=== PATIENT | female | born 1960 | race Two or more races ===

== ENCOUNTER 2025-01-12 14:46 | Inpatient (IN) | payer MEDICAID ==
[2025-01-12] VITALS (8 sets, daily range): BP systolic 79–102; BP diastolic 57–72; PULSE 110–123; RESP 16–30; TEMP 36.5848–36.6; O2SAT 97–99
[~2025-01-12] VITALS: Ht 157.5 cm; Wt 69.9 kg
[~2025-01-12 14:46] MED LIST: PROT40 MT; QUET50TA PO; SUCR1TAB PO; THIA50TA12 MT
[2025-01-12] MEDS: VANCOMYCIN 1G PREMIX 200 ML IV ONE (15:15)
[2025-01-12] MEDS: SODIUM CHLORIDE 0.9% (SEPSIS BOLUS) IV ONE (15:48)
[2025-01-12] MEDS: PIPERACILLIN/TAZO 3.375G/50ML 50 ML IV ONE (15:54)
[2025-01-12] MEDS: ONDANSETRON HCL 4MG/2ML INJ IV ONE ×2 (15:54→17:01)
[2025-01-12] MEDS: PANTOPRAZOLE SODIUM 40 MG/VIAL IV ONE (15:54)
[2025-01-12 16:09] LABS: BASOPHILS % 0.2 % (0.0-2.0); EOSINOPHILS % 0.0 % (0.0-5.0); HEMATOCRIT. 22.5 % (36.0-48.0); LYMPHOCYTES % 7.4 % (20.0-50.0); MEAN PLATELET VOLUME 10.3 fl (7.4-10.4); MONOCYTES % 3.2 % (2.0-8.0); NEUTROPHILS % 89.2 % (40.0-76.0); PLATELET 151 x1000/uL (130-400); RED BLOOD CELL COUNT 2.01 mill/uL (4.2-5.4); RED CELL DISTRIBUTION WIDTH 18.5 % (11.6-14.6)
[2025-01-12 16:19] LABS: BG BASE EXCESS -1.3 mmol/L (-2.0-3.0); BG CARBOXYHEMOGLOBIN 0.7 % (0.5-1.5); BG DEOXYHEMOGLOBIN 2.1 % (0.0-5.0); BG FRACTION INSPIRED OXYGEN 21; BG HCO3 ACT 19.8 mmol/L (21.0-28.0); BG METHEMOGLOBIN 0.3 % (0.5-1.5); BG OXYGEN SATURATION 97.9 % (94.0-98.0); BG OXYHEMOGLOBIN 96.9 % (94.0-98.0); BG PCO2 20.5 mmHg (32.0-45.0); BG PH 7.603 (7.350-7.450); BG PO2 99.4 mmHg (83.0-108.0); BG SAMPLE SITE LEFT BRACHIAL; BG TOTAL HEMOGLOBIN 7.0 g/dL (12.0-16.0); BG VENT MODE ROOM AIR
[2025-01-12 16:20] LABS: HEMOGLOBIN. 6.7 g/dL (12.0-16.0)
[2025-01-12 16:21] LABS: ADD RBC MORPHOLOGY YES
[2025-01-12 16:38] LABS: UREA NITROGEN BLOOD 26 mg/dL (9-23)
[2025-01-12 16:39] LABS: ETHANOL BLOOD < 10 mg/dL (<10); INR > 10.0
[2025-01-12 16:40] LABS: ASPARTATE AMINOTRANSFERASE > 1000 IU/L (<34); BILIRUBIN DIRECT 1.7 mg/dL (<=3.0); BILIRUBIN TOTAL 2.1 mg/dL (0.1-1.0)
[2025-01-12 16:41] LABS: PROTEIN TOTAL 4.3 g/dL (6.0-8.3)
[2025-01-12 16:47] LABS: CREATININE 1.7 mg/dL (0.6-1.0)
[2025-01-12 16:49] LABS: TROPONIN I HIGH SENSITIVITY 74 ng/L (3.0-34)
[2025-01-12] MEDS: DEXTROSE 50% WATER 50ML SYRINGE IV ONE (16:52)
[2025-01-12] MEDS: MAGNESIUM 2 G PREMIX 50 ML IV ONE (17:03)
[2025-01-12 17:28] LABS: PLATELET ESTIMATE NORMAL
[2025-01-12] MEDS: KCL 20MEQ/100ML PREMIX 100 ML IV SCH (17:42)
[2025-01-12] MEDS: PHYTONADIONE 10 MG in DEXTROSE 5% WATER 50 ML IV ONE (17:43)
[2025-01-12] MEDS: PANTOPRAZOLE 80 MG in SODIUM CHLORIDE 0.9% 100 ML IV SCH (17:53)
[2025-01-12] MEDS: NOREPINEPHRINE 8MG/250ML PMX 250 ML IV ONE (17:53)
[2025-01-12 18:13] LABS: INR 9.6
[2025-01-12] MEDS: HUMAN-LANS PROTHROMBIN CPLX (PCC) 1000 UNITS VIAL IV ONE (19:01)
[2025-01-12] MEDS ORDERED: ONDANSETRON HCL 4MG/2ML INJ IV PRN (19:15)
[2025-01-12] MEDS ORDERED: GUAIFENESIN 200MG/10ML SUGAR FREE UDC PO PRN (19:15)
[2025-01-12] MEDS ORDERED: PHENYLEPHRINE 50MG/250ML PMX 250 ML IV PRN (19:15)
[2025-01-12] MEDS ORDERED: NOREPINEPHRINE 8 MG in DEXT 5% WATER 242 ML IV PRN (19:30)
[2025-01-12 20:10] LABS: CREATININE 1.5 mg/dL (0.6-1.0)
[2025-01-12 20:11] LABS: UREA NITROGEN BLOOD 22 mg/dL (9-23)
[2025-01-12 20:12] LABS: ASPARTATE AMINOTRANSFERASE > 1000 IU/L (<34)
[2025-01-12 20:13] LABS: BILIRUBIN TOTAL 3.6 mg/dL (0.1-1.0); PROTEIN TOTAL 4.6 g/dL (6.0-8.3)
[2025-01-12 20:23] LABS: HEPATITIS A AB IGM NEGATIVE (Negative)
[2025-01-12 20:24] LABS: HEPATITIS B CORE AB IGM NEGATIVE (Negative); HEPATITIS C AB NON REACTIVE (Neg) (Negative)
[2025-01-12] MEDS: BLOOD SUGAR DIAGNOSTIC STRIP TEST SCH (21:36)
[2025-01-12] MEDS: ALBUMIN HUMAN 25GM/100ML (25%) IV SCH (21:48)
[2025-01-12] MEDS: OCTREOTIDE 1,000 MCG in SODIUM CHLORIDE 0.9% 98 ML IV ONE (21:49)
[2025-01-12] MEDS: FOLIC ACID 1 MG, THIAMINE HCL 100 MG, MVI, ADULT NO.1 10 ML in DEXT 5%/0.9% NACL 1,000 ML IV ONE (21:49)
[2025-01-12] MEDS: NOREPINEPHRINE 8MG/250ML PMX 250 ML IV PRN (22:57)
[2025-01-12 23:37] LABS: BASOPHILS % 0.2 % (0.0-2.0); EOSINOPHILS % 0.0 % (0.0-5.0); HEMATOCRIT. 42.8 % (36.0-48.0); HEMOGLOBIN. 13.9 g/dL (12.0-16.0); LYMPHOCYTES % 10.4 % (20.0-50.0); MEAN PLATELET VOLUME 9.7 fl (7.4-10.4); MONOCYTES % 3.6 % (2.0-8.0); NEUTROPHILS % 85.8 % (40.0-76.0); PLATELET 128 x1000/uL (130-400); RED BLOOD CELL COUNT 4.54 mill/uL (4.2-5.4); RED CELL DISTRIBUTION WIDTH 18.4 % (11.6-14.6)
[2025-01-12 23:51] LABS: CREATININE 1.7 mg/dL (0.6-1.0)
[2025-01-12 23:52] LABS: UREA NITROGEN BLOOD 24 mg/dL (9-23)
[2025-01-12 23:54] LABS: PHOSPHORUS 4.5 mg/dL (2.5-4.9)
[2025-01-12] MEDS: PHYTONADIONE 10MG/ML INJ SUBCUT NR (23:56)
[2025-01-12] MEDS: PIPERACILLIN/TAZO 3.375G/50ML 50 ML IV SCH (23:58)
[2025-01-13] VITALS (113 sets, daily range): BP systolic 45–170; BP diastolic 17–154; PULSE 93–133; RESP 15–37; TEMP 36.6–36.7; O2SAT 89–99
[2025-01-13 01:11] LABS: INR 4.6
[2025-01-13] MEDS: MAGNESIUM 1 G PREMIX 100 ML IV SCH (03:53)
[2025-01-13] MEDS: KCL 20MEQ/100ML PREMIX 100 ML IV SCH (03:53)
[2025-01-13] MEDS: PANTOPRAZOLE SODIUM 40 MG/VIAL IV SCH ×2 (04:07→21:26)
[2025-01-13] MEDS: PHYTONADIONE 10MG/ML INJ SUBCUT SCH (05:25)
[2025-01-13 07:02] LABS: CREATININE 1.8 mg/dL (0.6-1.0); INR 2.6; UREA NITROGEN BLOOD 23 mg/dL (9-23)
[2025-01-13 07:04] LABS: BILIRUBIN DIRECT 3.8 mg/dL (<=3.0); BILIRUBIN TOTAL 5.9 mg/dL (0.1-1.0); PROTEIN TOTAL 4.7 g/dL (6.0-8.3)
[2025-01-13 07:16] LABS: ASPARTATE AMINOTRANSFERASE 1187 IU/L (<34)
[2025-01-13 08:04] LABS: TROPONIN I HIGH SENSITIVITY 198 ng/L (3.0-34)
[2025-01-13] MEDS: VASOPRESSIN 20 UNIT in SODIUM CHLORIDE 0.9% 99 ML IV PRN (08:37)
[2025-01-13] MEDS: SODIUM CHLORIDE 0.9% 1,000 ML IV SCH (08:38)
[2025-01-13] MEDS: SODIUM CHLORIDE 0.9% (SEPSIS BOLUS) IV NR (08:40)
[2025-01-13] MEDS ORDERED: PANTOPRAZOLE SODIUM 40 MG/VIAL IV SCH (09:00)
[2025-01-13] MEDS ORDERED: PANTOPRAZOLE 80 MG in SODIUM CHLORIDE 0.9% 100 ML IV SCH (10:00)
[2025-01-13 10:15] LABS: BASOPHILS % 0.7 % (0.0-2.0); EOSINOPHILS % 0.1 % (0.0-5.0); HEMATOCRIT. 35.6 % (36.0-48.0); HEMOGLOBIN. 12.2 g/dL (12.0-16.0); LYMPHOCYTES % 15.0 % (20.0-50.0); MEAN PLATELET VOLUME 9.3 fl (7.4-10.4); MONOCYTES % 5.4 % (2.0-8.0); NEUTROPHILS % 78.8 % (40.0-76.0); PLATELET 117 x1000/uL (130-400); RED BLOOD CELL COUNT 3.93 mill/uL (4.2-5.4); RED CELL DISTRIBUTION WIDTH 18.1 % (11.6-14.6)
[2025-01-13] MEDS: VANCOMYCIN 750MG PREMIX 150 ML IV SCH (11:40)
[2025-01-13 11:49] LABS: CLARITY URINE CLEAR (CLEAR); COLOR URINE DARK YELLOW (YELLOW); GLUCOSE URINE NEGATIVE (NEGATIVE); KETONES URINE TRACE (NEGATIVE); LEUKOCYTE ESTERASE URINE TRACE (NEGATIVE); NITRITE URINE NEGATIVE (NEGATIVE); OCCULT BLOOD URINE NEGATIVE (NEGATIVE); PH URINE 6.0 (4.5-8.0); PROTEIN URINE 1+ (NEGATIVE); SPECIFIC GRAVITY URINE 1.020 (1.005-1.030); UROBILINOGEN URINE 1.0 E.U./dL (0.2-1.0)
[2025-01-13 12:00] LABS: SQUAMOUS EPITHELIAL CELL URINE RARE /lpf (RARE/1+)
[2025-01-13] MEDS ORDERED: VANCOMYCIN 750MG PREMIX 150 ML IV SCH (12:00)
[2025-01-13 12:02] LABS: BACTERIA URINE TRACE
[2025-01-13 12:04] LABS: WBC URINE 0-2 /hpf (0-2)
[2025-01-13 12:05] LABS: *AMPHETAMINES SCREEN URINE NEGATIVE (NEGATIVE); *BARBITURATES SCREEN URINE NEGATIVE (NEGATIVE); *BENZODIAZEPINES SCREEN URINE NEGATIVE (NEGATIVE); *COCAINE SCREEN URINE NEGATIVE (NEGATIVE); CANNABINOID URINE SCREEN NEGATIVE (NEGATIVE); ECSTASY MDMA SCREEN URINE NEGATIVE (NEGATIVE); METHADONE URINE SCREEN NEGATIVE (NEGATIVE); OPIATES URINE SCREEN NEGATIVE (NEGATIVE); PHENCYCLIDINE URINE SCREEN NEGATIVE (NEGATIVE); RBC URINE NONE SEEN /hpf (0-2)
[2025-01-13] MEDS: MAGNESIUM 2 G PREMIX 50 ML IV NR (12:16)
[2025-01-13] MEDS: PHYTONADIONE 10 MG in DEXTROSE 5% WATER 49 ML IV SCH (12:40)
[2025-01-13] MEDS: LIDOCAINE HCL 1% 10 MG/ML 10ML VIAL ONE (12:43)
[2025-01-13 19:51] LABS: PLATELET 104 x1000/uL (130-400); RED BLOOD CELL COUNT 4.06 mill/uL (4.2-5.4); RED CELL DISTRIBUTION WIDTH 18.3 % (11.6-14.6)
[2025-01-13 20:01] LABS: CREATININE 1.6 mg/dL (0.6-1.0); UREA NITROGEN BLOOD 25.0 mg/dL (9-23)
[2025-01-13] MEDS: RIFAXIMIN 550 MG TABLET PO SCH (21:26)
[2025-01-14] VITALS (92 sets, daily range): BP systolic 91–141; BP diastolic 48–107; PULSE 78–117; RESP 12–38; TEMP 36.6–37.33632; O2SAT 97–100
[2025-01-14 06:42] LABS: BASOPHILS % 0.3 % (0.0-2.0); EOSINOPHILS % 0.2 % (0.0-5.0); HEMATOCRIT. 34.4 % (36.0-48.0); HEMOGLOBIN. 11.7 g/dL (12.0-16.0); LYMPHOCYTES % 19.4 % (20.0-50.0); MEAN PLATELET VOLUME 9.3 fl (7.4-10.4); MONOCYTES % 8.8 % (2.0-8.0); NEUTROPHILS % 71.3 % (40.0-76.0); PLATELET 77 x1000/uL (130-400); RED BLOOD CELL COUNT 3.75 mill/uL (4.2-5.4); RED CELL DISTRIBUTION WIDTH 18.1 % (11.6-14.6)
[2025-01-14 06:48] LABS: INR 1.7
[2025-01-14 07:18] LABS: CREATININE 1.4 mg/dL (0.6-1.0); UREA NITROGEN BLOOD 31.0 mg/dL (9-23)
[2025-01-14 07:21] LABS: BILIRUBIN TOTAL 6.4 mg/dL (0.1-1.0)
[2025-01-14] MEDS: DEXT 5%/0.45% NACL 1000ML 1,000 ML IV SCH (08:09)
[2025-01-14] MEDS: SODIUM BICARBONATE 4.2% 2.5MEQ/5ML VIAL IV ONE (14:11)
[2025-01-14] MEDS: LIDOCAINE HCL 1% 10 MG/ML 10ML VIAL ONE (14:11)
[2025-01-14] MEDS: LACTULOSE 20G/30ML UDC PO SCH (15:15)
[2025-01-14] MEDS ORDERED: HYDROCODONE/ACETAMINOPHEN 5/325MG TABLET PO SCH (18:45)
[2025-01-14] MEDS: TRAZODONE HCL 50MG TABLET PO SCH (20:18)
[2025-01-14] MEDS: CEFTRIAXONE 1GM/50ML 50 ML IV SCH (20:18)
[2025-01-14] MEDS: DOXYCYCLINE 100MG/100ML 100 ML IV SCH (20:19)
[2025-01-14 22:26] LABS: BODY FLUID WBC 82 /cu mm (0-200)
[2025-01-14 22:27] LABS: BODY FLUID MONOCYTES 12 %; BODY FLUID RBC 10 /cu mm (0-2000)
[2025-01-14] MEDS: IOHEXOL-350 100 ML BOTTLE ONE (23:21)
[2025-01-14 23:55] LABS: BG BASE EXCESS 8.4 mmol/L (-2.0-3.0); BG CARBOXYHEMOGLOBIN 0.6 % (0.5-1.5); BG DEOXYHEMOGLOBIN 1.3 % (0.0-5.0); BG FLOW(L/min) 4.00 L/min; BG FRACTION INSPIRED OXYGEN 36; BG HCO3 ACT 31.9 mmol/L (21.0-28.0); BG METHEMOGLOBIN 0.0 % (0.5-1.5); BG OXYGEN SATURATION 98.7 % (94.0-98.0); BG OXYHEMOGLOBIN 98.1 % (94.0-98.0); BG PCO2 39.9 mmHg (32.0-45.0); BG PH 7.521 (7.350-7.450); BG PO2 126.3 mmHg (83.0-108.0); BG TOTAL HEMOGLOBIN 11.0 g/dL (12.0-16.0); BG VENT MODE NASAL CANNULA
[2025-01-15] VITALS (124 sets, daily range): BP systolic 37–179; BP diastolic 16–128; PULSE 66–148; RESP 12–30; TEMP 36.6–37; O2SAT 93–100
[2025-01-15] MEDS ORDERED: PHENYLEPHRINE 50MG/250ML PMX 250 ML IV PRN (07:00)
[2025-01-15 07:29] LABS: CREATININE 1.0 mg/dL (0.6-1.0); UREA NITROGEN BLOOD 34.0 mg/dL (9-23)
[2025-01-15] MEDS: PHENYLEPHRINE 50MG/250ML PMX 250 ML IV PRN (07:34)
[2025-01-15 08:10] LABS: PLATELET 53 x1000/uL (130-400); RED BLOOD CELL COUNT 3.35 mill/uL (4.2-5.4); RED CELL DISTRIBUTION WIDTH 18.2 % (11.6-14.6)
[2025-01-15] MEDS: KCL 20MEQ/100ML PREMIX 100 ML IV SCH (08:37)
[2025-01-15 10:49] LABS: LACTATE DEHYDROGENASE 322 IU/L (120-246)
[2025-01-15 10:50] LABS: ASPARTATE AMINOTRANSFERASE 133 IU/L (<34); BILIRUBIN DIRECT 5.3 mg/dL (<=3.0); BILIRUBIN TOTAL 8.0 mg/dL (0.1-1.0); PROTEIN TOTAL 4.6 g/dL (6.0-8.3)
[2025-01-15] MEDS ORDERED: DEXMEDETOMIDINE 100 ML IV PRN (13:00)
[2025-01-15] MEDS: ALBUMIN HUMAN 25GM/100ML (25%) IV SCH (13:52)
[2025-01-15] MEDS: MIDODRINE HCL 5MG TABLET PO SCH (13:52)
[2025-01-15] MEDS: IPRATROPIUM/ALBUTEROL 0.5-3(2.5)MG/3ML NEB HHN PRN (15:23)
[2025-01-15 15:24] LABS: BG BASE EXCESS 3.0 mmol/L (-2.0-3.0); BG CARBOXYHEMOGLOBIN 0.7 % (0.5-1.5); BG DEOXYHEMOGLOBIN 0.1 % (0.0-5.0); BG FRACTION INSPIRED OXYGEN 80; BG HCO3 ACT 24.6 mmol/L (21.0-28.0); BG METHEMOGLOBIN 0.1 % (0.5-1.5); BG OXYGEN SATURATION 99.9 % (94.0-98.0); BG OXYHEMOGLOBIN 99.1 % (94.0-98.0); BG PCO2 28.1 mmHg (32.0-45.0); BG PEEP (cmH2O) 5.0 cmH2O; BG PH 7.560 (7.350-7.450); BG PO2 254.9 mmHg (83.0-108.0); BG SAMPLE SITE RIGHT FEMORAL; BG TIDAL VOLUME(mL) 450.0 mL; BG TOTAL HEMOGLOBIN 11.2 g/dL (12.0-16.0); BG VENT MODE VENT - AC; BG VENT RATE 16.0 set
[2025-01-15] MEDS: ACETYLCYSTEINE 200MG/ML 20% VIAL 4ML INH SCH (15:24)
[2025-01-15 17:21] LABS: BASOPHILS % 0.1 % (0.0-2.0); EOSINOPHILS % 0.1 % (0.0-5.0); HEMATOCRIT. 26.7 % (36.0-48.0); HEMOGLOBIN. 9.2 g/dL (12.0-16.0); LYMPHOCYTES % 15.8 % (20.0-50.0); MEAN PLATELET VOLUME 9.6 fl (7.4-10.4); MONOCYTES % 10.9 % (2.0-8.0); NEUTROPHILS % 73.1 % (40.0-76.0); RED BLOOD CELL COUNT 2.84 mill/uL (4.2-5.4); RED CELL DISTRIBUTION WIDTH 17.9 % (11.6-14.6)
[2025-01-15 17:36] LABS: INR 1.6
[2025-01-15] MEDS ORDERED: PROPOFOL 10MG/ML 100ML 100 ML IV PRN ×2 (21:00→21:08)
[2025-01-15] MEDS: DEXMEDETOMIDINE 100 ML IV PRN (22:26)
[2025-01-16] VITALS (109 sets, daily range): BP systolic 72–156; BP diastolic 26–103; PULSE 78–109; RESP 12–20; TEMP 36.4–36.7; O2SAT 97–100
[2025-01-16] MEDS: NOREPINEPHRINE 32 MG in DEXT 5% WATER 218 ML IV PRN (00:55)
[2025-01-16 06:40] LABS: PLATELET 58 x1000/uL (130-400); RED BLOOD CELL COUNT 3.07 mill/uL (4.2-5.4); RED CELL DISTRIBUTION WIDTH 18.4 % (11.6-14.6)
[2025-01-16 07:00] LABS: UREA NITROGEN BLOOD 36 mg/dL (9-23)
[2025-01-16 07:01] LABS: CREATININE 0.8 mg/dL (0.6-1.0)
[2025-01-16 07:02] LABS: TRIGLYCERIDE 126 mg/dL (0-150)
[2025-01-16 07:03] LABS: ASPARTATE AMINOTRANSFERASE 104 IU/L (<34); BILIRUBIN DIRECT 8.7 mg/dL (<=3.0)
[2025-01-16 07:04] LABS: BILIRUBIN TOTAL 11.9 mg/dL (0.1-1.0); PROTEIN TOTAL 4.8 g/dL (6.0-8.3)
[2025-01-16] MEDS ORDERED: LACTULOSE 20G/30ML UDC PO NR (10:30)
[2025-01-16 10:31] LABS: PLATELET 45 x1000/uL (130-400)
[2025-01-16] MEDS: LACTULOSE ENEMA 1,000ML BOTTLE PR NR (11:49)
[2025-01-16 14:04] LABS: BG BASE EXCESS 3.8 mmol/L (-2.0-3.0); BG CARBOXYHEMOGLOBIN 0.4 % (0.5-1.5); BG DEOXYHEMOGLOBIN 2.1 % (0.0-5.0); BG FRACTION INSPIRED OXYGEN 40; BG HCO3 ACT 26.1 mmol/L (21.0-28.0); BG METHEMOGLOBIN 0.3 % (0.5-1.5); BG OXYGEN SATURATION 97.9 % (94.0-98.0); BG OXYHEMOGLOBIN 97.2 % (94.0-98.0); BG PCO2 31.1 mmHg (32.0-45.0); BG PEEP (cmH2O) 5.0 cmH2O; BG PH 7.542 (7.350-7.450); BG PO2 94.7 mmHg (83.0-108.0); BG SAMPLE SITE LEFT RADIAL; BG TIDAL VOLUME(mL) 450.0 mL; BG TOTAL HEMOGLOBIN 10.1 g/dL (12.0-16.0); BG VENT MODE VENT - AC; BG VENT RATE 14.0 set
[2025-01-16] MEDS: KCL 20MEQ/100ML PREMIX 100 ML IV ONE (14:57)
[2025-01-16] MEDS: MAGNESIUM 2 G PREMIX 50 ML IV ONE (14:57)
[2025-01-16] MEDS: LACTULOSE 20G/30ML UDC PO SCH (21:51)
[2025-01-16 23:45] LABS: T4 FREE 0.60 ng/dL (0.89-1.76)
[2025-01-17] VITALS (91 sets, daily range): BP systolic 77–137; BP diastolic 53–105; PULSE 89–107; RESP 14–22; TEMP 36.4–36.9; O2SAT 97–100
[2025-01-17 07:16] LABS: PLATELET 58 x1000/uL (130-400); RED BLOOD CELL COUNT 3.23 mill/uL (4.2-5.4); RED CELL DISTRIBUTION WIDTH 18.3 % (11.6-14.6)
[2025-01-17 07:23] LABS: CREATININE 0.7 mg/dL (0.6-1.0); UREA NITROGEN BLOOD 25 mg/dL (9-23)
[2025-01-17 07:25] LABS: ASPARTATE AMINOTRANSFERASE 101 IU/L (<34); BILIRUBIN DIRECT 10.6 mg/dL (<=3.0); PROTEIN TOTAL 4.9 g/dL (6.0-8.3)
[2025-01-17 07:28] LABS: BILIRUBIN TOTAL 14.2 mg/dL (0.1-1.0)
[2025-01-17] MEDS: OCTREOTIDE 1,000 MCG in SODIUM CHLORIDE 0.9% 98 ML IV SCH (08:12)
[2025-01-17] MEDS: KCL 20MEQ/100ML PREMIX 100 ML IV NR (14:21)
[2025-01-17] MEDS: MAGNESIUM 2 G PREMIX 50 ML IV NR (14:21)
[2025-01-17] MEDS: BISACODYL 10MG SUPP PR PRN (15:28)
[2025-01-17 23:04] LABS: CREATININE 0.8 mg/dL (0.6-1.0); UREA NITROGEN BLOOD 25 mg/dL (9-23)
[2025-01-18] VITALS (105 sets, daily range): BP systolic 76–170; BP diastolic 29–110; PULSE 80–118; RESP 13–22; TEMP 36.4–37.4; O2SAT 95–100
[2025-01-18 07:12] LABS: PLATELET 76 x1000/uL (130-400); RED BLOOD CELL COUNT 3.52 mill/uL (4.2-5.4); RED CELL DISTRIBUTION WIDTH 19.2 % (11.6-14.6)
[2025-01-18 07:18] LABS: CREATININE 0.8 mg/dL (0.6-1.0)
[2025-01-18 07:19] LABS: UREA NITROGEN BLOOD 23 mg/dL (9-23)
[2025-01-18 07:20] LABS: ASPARTATE AMINOTRANSFERASE 166 IU/L (<34)
[2025-01-18 07:21] LABS: BILIRUBIN DIRECT 11.8 mg/dL (<=3.0); BILIRUBIN TOTAL 18.6 mg/dL (0.1-1.0); PROTEIN TOTAL 4.9 g/dL (6.0-8.3)
[2025-01-18] MEDS: THIAMINE HCL 100MG TABLET PO SCH (08:23)
[2025-01-18] MEDS: LACTULOSE 20G/30ML UDC PO SCH (12:29)
[2025-01-18] MEDS ORDERED: IOHEXOL-300 100 ML BOTTLE ONE (13:17)
[2025-01-19] VITALS (94 sets, daily range): BP systolic 74–125; BP diastolic 54–85; PULSE 87–105; RESP 15–25; TEMP 36.7–37; O2SAT 85–100
[2025-01-19 06:39] LABS: PLATELET 118 x1000/uL (130-400); RED BLOOD CELL COUNT 3.22 mill/uL (4.2-5.4); RED CELL DISTRIBUTION WIDTH 19.7 % (11.6-14.6)
[2025-01-19 06:48] LABS: UREA NITROGEN BLOOD 29 mg/dL (9-23)
[2025-01-19 06:50] LABS: ASPARTATE AMINOTRANSFERASE 191 IU/L (<34); BILIRUBIN DIRECT 12.8 mg/dL (<=3.0); BILIRUBIN TOTAL 16.9 mg/dL (0.1-1.0); PROTEIN TOTAL 5.4 g/dL (6.0-8.3)
[2025-01-19 07:18] LABS: CREATININE 1.2 mg/dL (0.6-1.0)
[2025-01-19 07:39] LABS: INR 1.3
[2025-01-19] MEDS: MIDODRINE HCL 5MG TABLET GT SCH (09:49)
[2025-01-19] MEDS: RIFAXIMIN 550 MG TABLET NG SCH (10:43)
[2025-01-19] MEDS ORDERED: ASPI-1497 PO (12:18)
[2025-01-19] MEDS ORDERED: LOPHC2 MT (12:18)
[2025-01-19] MEDS ORDERED: CLOP75TA33 MT (12:18)
[2025-01-19] MEDS ORDERED: METH-653 GT (12:18)
[2025-01-19] MEDS ORDERED: DAPA10TA PO (12:18)
[2025-01-19] MEDS ORDERED: POTA-205 MT (12:18)
[2025-01-19] MEDS ORDERED: ATOR40TA70 MT (12:18)
[2025-01-19] MEDS ORDERED: METF-1149 MT (12:18)
[2025-01-19] MEDS ORDERED: TOPUD PO (12:18)
[2025-01-19] MEDS ORDERED: FURO20TA4 MT (12:18)
[2025-01-19] MEDS ORDERED: OXYC-662 MT (12:18)
[2025-01-19] MEDS ORDERED: AMLO2.5T45 MT (12:18)
[2025-01-19 12:45] LABS: BG BASE EXCESS 1.7 mmol/L (-2.0-3.0); BG CARBOXYHEMOGLOBIN 0.5 % (0.5-1.5); BG DEOXYHEMOGLOBIN 2.4 % (0.0-5.0); BG FRACTION INSPIRED OXYGEN 40; BG HCO3 ACT 24.6 mmol/L (21.0-28.0); BG METHEMOGLOBIN 0.3 % (0.5-1.5); BG OXYGEN SATURATION 97.6 % (94.0-98.0); BG OXYHEMOGLOBIN 96.8 % (94.0-98.0); BG PCO2 32.0 mmHg (32.0-45.0); BG PEEP (cmH2O) 5.0 cmH2O; BG PH 7.503 (7.350-7.450); BG PO2 89.3 mmHg (83.0-108.0); BG SAMPLE SITE RIGHT RADIAL; BG TIDAL VOLUME(mL) 450.0 mL; BG TOTAL HEMOGLOBIN 10.0 g/dL (12.0-16.0); BG VENT MODE VENT - ACVC; BG VENT RATE 14.0 set
[2025-01-19] MEDS ORDERED: LIDOCAINE HCL 1% 10 MG/ML 10ML VIAL ONE (13:15)
[2025-01-19] MEDS: SODIUM CHLORIDE 0.9% 1,000 ML IV ONE (17:15)
[2025-01-19 22:38] LABS: BODY FLUID MONOCYTES 46 %; BODY FLUID RBC 6 /cu mm (0-2000); BODY FLUID WBC 18 /cu mm (0-200)
[2025-01-20] VITALS (144 sets, daily range): BP systolic 37–196; BP diastolic 10–106; PULSE 96–132; RESP 18–42; TEMP 36.2–36.6; O2SAT 91–100
[2025-01-20 04:34] LABS: BG BASE EXCESS 13.4 mmol/L (-2.0-3.0); BG CARBOXYHEMOGLOBIN 0.8 % (0.5-1.5); BG DEOXYHEMOGLOBIN 4.8 % (0.0-5.0); BG FRACTION INSPIRED OXYGEN 40; BG HCO3 ACT 34.3 mmol/L (21.0-28.0); BG METHEMOGLOBIN 0.3 % (0.5-1.5); BG OXYGEN SATURATION 95.1 % (94.0-98.0); BG OXYHEMOGLOBIN 94.1 % (94.0-98.0); BG PCO2 30.7 mmHg (32.0-45.0); BG PEEP (cmH2O) 5.0 cmH2O; BG PH 7.666 (7.350-7.450); BG PO2 65.3 mmHg (83.0-108.0); BG SAMPLE SITE RIGHT RADIAL; BG TIDAL VOLUME(mL) 450.0 mL; BG TOTAL HEMOGLOBIN 12.1 g/dL (12.0-16.0); BG VENT MODE VENT - AC; BG VENT RATE 14.0 set
[2025-01-20 07:02] LABS: UREA NITROGEN BLOOD 34 mg/dL (9-23)
[2025-01-20 07:03] LABS: CREATININE 1.5 mg/dL (0.6-1.0)
[2025-01-20 07:05] LABS: ASPARTATE AMINOTRANSFERASE 212 IU/L (<34); BILIRUBIN DIRECT 13.3 mg/dL (<=3.0); HEMATOCRIT. 35.8 % (36.0-48.0); HEMOGLOBIN. 11.7 g/dL (12.0-16.0); MEAN PLATELET VOLUME 10.9 fl (7.4-10.4); PHOSPHORUS 4.4 mg/dL (2.5-4.9); PLATELET 162 x1000/uL (130-400); RED BLOOD CELL COUNT 3.67 mill/uL (4.2-5.4); RED CELL DISTRIBUTION WIDTH 21.4 % (11.6-14.6)
[2025-01-20 07:06] LABS: BILIRUBIN TOTAL 18.2 mg/dL (0.1-1.0); PROTEIN TOTAL 5.1 g/dL (6.0-8.3)
[2025-01-20 07:40] LABS: INR 1.7
[2025-01-20] MEDS: SPIRONOLACTONE 50MG TABLET PO SCH (08:22)
[2025-01-20] MEDS: DEXT 5%/0.45% NACL 1000ML 1,000 ML IV ONE (08:37)
[2025-01-20] MEDS ORDERED: PREDNISONE 20MG TABLET PO SCH (09:00)
[2025-01-20] MEDS: DEXTROSE 50% WATER 50ML SYRINGE IV PRN (11:59)
[2025-01-20] MEDS: EPINEPHRINE 10 MG in SODIUM CHLORIDE 0.9% 240 ML IV PRN (14:24)
[2025-01-20] MEDS: DEXMEDETOMIDINE 100 ML IV PRN (15:52)
[2025-01-20 16:50] LABS: BG BASE EXCESS -19.6 mmol/L (-2.0-3.0); BG CARBOXYHEMOGLOBIN 0.5 % (0.5-1.5); BG DEOXYHEMOGLOBIN 3.0 % (0.0-5.0); BG FRACTION INSPIRED OXYGEN 100; BG HCO3 ACT 7.6 mmol/L (21.0-28.0); BG METHEMOGLOBIN 0.3 % (0.5-1.5); BG OXYGEN SATURATION 97.0 % (94.0-98.0); BG OXYHEMOGLOBIN 96.2 % (94.0-98.0); BG PCO2 22.5 mmHg (32.0-45.0); BG PEEP (cmH2O) 5.0 cmH2O; BG PH 7.145 (7.350-7.450); BG PO2 110.4 mmHg (83.0-108.0); BG SAMPLE SITE RIGHT RADIAL; BG TIDAL VOLUME(mL) 375.0 mL; BG TOTAL HEMOGLOBIN 11.8 g/dL (12.0-16.0); BG VENT MODE VENT - AC; BG VENT RATE 12.0 set
[2025-01-20] MEDS: SODIUM BICARBONATE 8.4% 50MEQ/50ML SYR IV SCH (17:15)
[2025-01-20] MEDS: DOPAMINE 800MG PREMIX (DOUBLE) 250 ML IV PRN (18:26)
[2025-01-20] MEDS: PHYTONADIONE 10 MG in DEXTROSE 5% WATER 49 ML IV SCH (19:27)
[2025-01-20] MEDS: SODIUM BICARBONATE 100 MEQ in SODIUM CHLORIDE 0.45% 900 ML IV SCH (19:27)
[2025-01-20] MEDS: LACTULOSE ENEMA 1,000ML BOTTLE PR SCH (20:00)
[2025-01-20] MEDS ORDERED: EPINEPHRINE 20 MG in SODIUM CHLORIDE 0.9% 230 ML IV PRN (20:30)
[2025-01-20] MEDS: EPINEPHRINE 20 MG in SODIUM CHLORIDE 0.9% 480 ML IV PRN (21:37)
[2025-01-21] VITALS (113 sets, daily range): BP systolic 34–135; BP diastolic 11–99; PULSE 56–102; RESP 16–41; TEMP 36.2; O2SAT 95–100
[2025-01-21 06:41] LABS: CREATININE 1.8 mg/dL (0.6-1.0); UREA NITROGEN BLOOD 31 mg/dL (9-23)
[2025-01-21 06:43] LABS: PHOSPHORUS 6.8 mg/dL (2.5-4.9)
[2025-01-21 09:09] LABS: HEMATOCRIT. 27.4 % (36.0-48.0); RED BLOOD CELL COUNT 2.47 mill/uL (4.2-5.4); RED CELL DISTRIBUTION WIDTH 22.8 % (11.6-14.6)
[2025-01-21 09:21] LABS: BG BASE EXCESS -20.3 mmol/L (-2.0-3.0); BG CARBOXYHEMOGLOBIN 1.7 % (0.5-1.5); BG DEOXYHEMOGLOBIN 10.4 % (0.0-5.0); BG FRACTION INSPIRED OXYGEN 80; BG HCO3 ACT 7.7 mmol/L (21.0-28.0); BG METHEMOGLOBIN 0.1 % (0.5-1.5); BG OXYGEN SATURATION 89.4 % (94.0-98.0); BG OXYHEMOGLOBIN 87.8 % (94.0-98.0); BG PCO2 25.3 mmHg (32.0-45.0); BG PEEP (cmH2O) 5.0 cmH2O; BG PH 7.103 (7.350-7.450); BG PO2 70.3 mmHg (83.0-108.0); BG SAMPLE SITE RIGHT RADIAL; BG TIDAL VOLUME(mL) 375.0 mL; BG TOTAL HEMOGLOBIN 8.9 g/dL (12.0-16.0); BG VENT MODE VENT - AC; BG VENT RATE 12.0 set
[2025-01-21 09:22] LABS: HEMOGLOBIN. 7.9 g/dL (12.0-16.0)
[2025-01-21 09:31] LABS: BAND% 21.0 % (1.0-6.0); LYMPHOCYTES % MANUAL 7.0 % (20.0-60.0); METAMYELOCYTES % 1.0 % (0-0); MONOCYTES % MANUAL 9.0 % (2.0-8.0); NEUTROPHILS % MANUAL 62.0 % (45.0-75.0)
[2025-01-21 09:32] LABS: PLATELET ESTIMATE NORMAL
[2025-01-21 10:00] LABS: INR > 10.0
[2025-01-21 10:17] LABS: BAND% 24.0 % (1.0-6.0); LYMPHOCYTES % MANUAL 14.0 % (20.0-60.0); METAMYELOCYTES % 6.0 % (0-0); MONOCYTES % MANUAL 6.0 % (2.0-8.0); MYELOCYTES % 4.0 % (0-0); NEUTROPHILS % MANUAL 46.0 % (45.0-75.0); NUCLEATED RED BLOOD CELLS 1 /100 WBC
[2025-01-21 10:19] LABS: PLATELET ESTIMATE DECREASED
[2025-01-21 10:21] LABS: PLATELET 62 x1000/uL (130-400)
[2025-01-22] VITALS (7 sets, daily range): BP systolic 42–58; BP diastolic 18–37; PULSE 55–56; RESP 12–24
== END 2025-01-22 02:49 | DRG 720 ==
LOC: ER 14:46 → CVICU 18:17 → EDBEDREQ 18:31 → EDBEDREQTM 18:31 → ENRESERV 18:37 → CVICU 01-19 13:31
PROVIDERS: ADMIT Internal Medicine; ATTEND Internal Medicine
PROC: 30233K1 Transfusion of Nonautologous Frozen Plasma into Peripheral Vein, Percutaneous Approach (ICD-10-PCS; 2025-01-12)
PROC: 30233N1 Transfusion of Nonautologous Red Blood Cells into Peripheral Vein, Percutaneous Approach (ICD-10-PCS; 2025-01-12)
PROC: 02HV33Z Insertion of Infusion Device into Superior Vena Cava, Percutaneous Approach (ICD-10-PCS; 2025-01-13)
PROC: B548ZZA Ultrasonography of Superior Vena Cava, Guidance (ICD-10-PCS; 2025-01-13)
PROC: 0W9G3ZZ Drainage of Peritoneal Cavity, Percutaneous Approach (ICD-10-PCS; 2025-01-14)
PROC: 0BH17EZ Insertion of Endotracheal Airway into Trachea, Via Natural or Artificial Opening (ICD-10-PCS; principal; 2025-01-15)
PROC: 5A1955Z Respiratory Ventilation, Greater than 96 Consecutive Hours (ICD-10-PCS; 2025-01-15)
PROC: 0W9G3ZZ Drainage of Peritoneal Cavity, Percutaneous Approach (ICD-10-PCS; 2025-01-19)
DX: A41.9 Sepsis, unspecified organism (principal); J96.01 Acute respiratory failure with hypoxia; J69.0 Pneumonitis due to inhalation of food and vomit; I81 Portal vein thrombosis; R65.21 Severe sepsis with septic shock; R57.1 Hypovolemic shock; E87.20 Acidosis, unspecified; K70.40 Alcoholic hepatic failure without coma; D68.69 Other thrombophilia; F10.20 Alcohol dependence, uncomplicated; F31.9 Bipolar disorder, unspecified; E72.20 Disorder of urea cycle metabolism, unspecified; D69.59 Other secondary thrombocytopenia; E04.9 Nontoxic goiter, unspecified; K70.11 Alcoholic hepatitis with ascites; I21.A1 Myocardial infarction type 2; D50.0 Iron deficiency anemia secondary to blood loss (chronic); K76.82 Hepatic encephalopathy; J90 Pleural effusion, not elsewhere classified; N17.9 Acute kidney failure, unspecified; E88.09 Other disorders of plasma-protein metabolism, not elsewhere classified; K92.0 Hematemesis; E87.8 Other disorders of electrolyte and fluid balance, not elsewhere classified; K92.1 Melena; E16.2 Hypoglycemia, unspecified; E83.42 Hypomagnesemia; E87.6 Hypokalemia; E86.1 Hypovolemia; F17.210 Nicotine dependence, cigarettes, uncomplicated; K76.0 Fatty (change of) liver, not elsewhere classified; E87.70 Fluid overload, unspecified; K70.31 Alcoholic cirrhosis of liver with ascites; K44.9 Diaphragmatic hernia without obstruction or gangrene; N28.0 Ischemia and infarction of kidney; Z66 Do not resuscitate; D75.89 Other specified diseases of blood and blood-forming organs; E07.81 Sick-euthyroid syndrome; J98.2 Interstitial emphysema; K22.89 Other specified disease of esophagus; K82.8 Other specified diseases of gallbladder; Z79.84 Long term (current) use of oral hypoglycemic drugs; J18.9 Pneumonia, unspecified organism
CPT/HCPCS: 31720; 36415; 36573; 36600; 49083; 71045; 71275; 74177; 76604; 76700; 76705; 80048; 80053; 80076; 80202; 80305; 80307; 80320; 80329; 81003; 82040; 82105; 82140; 82247; 82375; 82805; 82962; 83036; 83605; 83615; 83735; 83880; 83930; 84100; 84145; 84439; 84443; 84478; 84481; 84484; 85014; 85018; 85025; 85027; 85044; 85379; 85384; 86705; 86709; 86850; 86900; 86920; 86927; 87070; 87340; 93005; 93970; 94002; 94003; 94070; 94640; 94664; 94760; 98960; 99291; 99292; A4606; C1725; C9132; J0696; J1265; J2003; J2354; J2371; J2405; J2470; J2543; J3373; J3411; J3430; J3475; J3480; J3490; J7030; J7042; J7050; J7060; J7608; P9016; P9017; P9047; Q9967; G0480